=== PATIENT | female | born 1960 | race Caucasian/White ===

== ENCOUNTER → 2017-06-15 | Outpatient (CLI) | payer OTHER ==
[~2017-06-15] MED LIST: NO HOME MEDICATIONS; PHENERGAN 25 TA25 MG PO; XANAX0.5 MG PO
[2017-06-15 10:42] LABS: BASO # 0.1 (0.0-0.2); EOS # 0.1 (0.0-0.7); EOS % 2.5 % (0-4.0); GRAN # 2.7 (1.4-6.5); GRAN % 51.6 % (42.2-75.2); HEMATOCRIT 44.9 % (37.0-47.0); HEMOGLOBIN 14.8 g/dl (12.5-16.0); LYMPH # 1.9 (1.2-3.4); LYMPH % 35.9 % (20.0-51.0); MEAN CELL VOLUME 91 fl (80.0-100.0); MEAN CORPUSCULAR HEMOGLOBIN 30 pg (27.0-31.0); MEAN CORPUSCULAR HGB CONC 33 g/dl (33.0-37.0); MEAN PLATELET VOLUME 11.6 fl (7.4-10.4); MONO # 0.5 (0.1-0.6); PLATELET COUNT 224 K/mm3 (130-400); RED BLOOD COUNT 4.94 M/mm3 (4.10-5.30); WHITE BLOOD COUNT 5.2 K/mm3 (4.8-10.8)
[2017-06-15 10:43] LABS: MUCOUS Present /lpf; PH 5 (5-8); URINE APPEARANCE Hazy; URINE BACTERIA None Seen /hpf; URINE BILIRUBIN Negative (NEGATIVE); URINE BLOOD Negative (NEGATIVE); URINE COLOR Yellow; URINE GLUCOSE Negative (NEGATIVE); URINE KETONE Trace (NEGATIVE); URINE LEUKOCYTE ESTERASE Negative (NEGATIVE); URINE PROTEIN(semi-quant) Negative (NEGATIVE); URINE RBC 0-2 /hpf; URINE UROBILINOGEN Negative (NEGATIVE); URINE WBC 0-2 /hpf
[2017-06-15 10:52] LABS: ADJUSTED CALCIUM 9.1 mg/dL (8.4-10.2); ALBUMIN 4.8 gm/dL (3.5-5.0); BILIRUBIN,TOTAL 0.6 mg/dL (0.0-1.0); CALCIUM 9.7 mg/dL (8.4-10.2); CHOLESTEROL RISK RATIO 3.3; CREATININE, serum 0.65 mg/dL (0.52-1.25); POTASSIUM 3.7 mmol/L (3.4-5.0); TOTAL PROTEIN 7.9 gm/dL (6.4-8.2)
[2017-06-15 11:03] LABS: COLLECTION METHOD CLEAN CATCH
[2017-06-15 11:22] LABS: THYROID STIMULATING HORMONE 2.35 uIU/mL (0.465-4.680)
== END ==
LOC: COL.VAS 09:13
PROVIDERS: Registered Nurse
DX: I36.1 Nonrheumatic tricuspid (valve) insufficiency (principal); E66.01 Morbid (severe) obesity due to excess calories; M17.0 Bilateral primary osteoarthritis of knee

== ENCOUNTER 2019-08-09 17:14 | Inpatient (IN) | payer OTHER ==
[~2019-08-09] VITALS: Ht 157.5 cm; Wt 119.3 kg
[2019-08-09 18:19] LABS: COLLECTION METHOD CLEAN CATCH
[2019-08-09 18:26] LABS: HEMOGLOBIN 12.1 g/dl (12.5-16.0); MEAN CELL VOLUME 88 fl (80.0-100.0); MEAN CORPUSCULAR HEMOGLOBIN 29 pg (27.0-31.0); MEAN CORPUSCULAR HGB CONC 33 g/dl (33.0-37.0); MEAN PLATELET VOLUME 10.9 fl (7.4-10.4); PLATELET COUNT 338 K/mm3 (130-400); RED BLOOD COUNT 4.15 M/mm3 (4.10-5.30); REDCELL DISTRIBUTION WIDTH-CV 12.9 % (11.5-14.5)
[2019-08-09 18:28] LABS: HEMATOCRIT 36.4 % (37.0-47.0)
[2019-08-09 18:36] LABS: ALBUMIN 3.8 gm/dL (3.5-5.0); BILIRUBIN,TOTAL 0.5 mg/dL (0.0-1.0); CALCIUM 9.6 mg/dL (8.4-10.2); CREATININE, serum 0.58 (0.52-1.25); TOTAL PROTEIN 7.3 gm/dL (6.4-8.2)
[2019-08-09 18:46] LABS: MUCOUS Present /lpf; PH 7 (5-8); SQUAMOUS EPITHELIAL 0-2 /hpf; URINE APPEARANCE Clear; URINE BACTERIA None Seen /hpf; URINE BILIRUBIN Negative (NEGATIVE); URINE BLOOD Negative (NEGATIVE); URINE COLOR Yellow; URINE GLUCOSE Negative (NEGATIVE); URINE KETONE Negative (NEGATIVE); URINE LEUKOCYTE ESTERASE Trace (NEGATIVE); URINE NITRATE Negative (NEGATIVE); URINE PROTEIN(semi-quant) Negative (NEGATIVE); URINE RBC 0-2 /hpf; URINE UROBILINOGEN Negative (NEGATIVE)
[2019-08-09 18:48] LABS: POTASSIUM 2.9 mmol/L (3.4-5.0)
[2019-08-09 20:21] LABS: BAND 3 % (0-10); LYMPHOCYTE 10 % (20.0-51.0); NEUTROPHILS 83 % (42.0-75.2); PLATELET ESTIMATE NORMAL (NORMAL)
[2019-08-09] MEDS ORDERED: FLAGYL500 MG PO (21:26)
[2019-08-09] MEDS ORDERED: CIPRO 500MG TA500 MG PO (21:27)
[2019-08-09] MEDS ORDERED: CBD OIL (21:28)
[2019-08-09] MEDS ORDERED: BENADRYL25 M2 PO (21:28)
--- NOTE | 2019-08-09 22:30 | NUR ---
Patient arrived to Surgical floor at this time
--- NOTE | 2019-08-09 22:45 | NUR ---
Assessment complete. Lungs clear. Murmur heard. Bowels active x4. Pulses present throughout. No edema noted. INT right hand and left AC present. Flushed without complications. Has right thumb nail missing and right pointer finger wound healing. Denies pain at time of admission. Alert and orientated. Orientated to surgical floor, call light, and room. Denies questions at this time.
--- NOTE | 2019-08-09 22:55 | NUR ---
Verbal orders given from Ana María Garcia APRN for NS at 125ml/hr and stop D5 1/2 NS. Accuchecks Q6H. Potassium 40 meq total, 10 meq bags IV and telemetry.
[2019-08-10] VITALS (282 sets, daily range): BP systolic 68–158; BP diastolic 42–114; PULSE 80–171; TEMP 98.9–101.5; O2SAT 72–100
--- NOTE | 2019-08-10 01:08 | NUR ---
Patient reports unrelieved pain after adminstration of dilaudid. Dilaudid order states may repeat dose in 30 mins if unrelieved pain. Provided to patient at this time. Will monitor
[2019-08-10] MEDS ORDERED: [UNRECOGNIZED DRUG - OTHER] PO (02:28)
[2019-08-10] MEDS ORDERED: ALEVE 220MG220 MG PO (02:29)
--- NOTE | 2019-08-10 03:52 | NUR ---
Rating pain 5/10. Provided with PRN dilaudid at this time.
--- NOTE | 2019-08-10 06:06 | NUR ---
Rating ABD pain 10. Requested and provided PRN dilaudid at this time. call light in reach.
--- NOTE | 2019-08-10 06:36 | NUR ---
Patient required PRN dilaudid for pain control throughout night. Otherwise uneventful night. Resting in bed this AM.
--- NOTE | 2019-08-10 07:09 | NUR ---
Report given to DEBORAH Gonzalez
[2019-08-10 08:03] LABS: HEMOGLOBIN 10.5 g/dl (12.5-16.0); MEAN CELL VOLUME 91 fl (80.0-100.0); MEAN CORPUSCULAR HEMOGLOBIN 29 pg (27.0-31.0); MEAN CORPUSCULAR HGB CONC 32 g/dl (33.0-37.0); MEAN PLATELET VOLUME 11.3 fl (7.4-10.4); PLATELET COUNT 348 K/mm3 (130-400); RED BLOOD COUNT 3.64 M/mm3 (4.10-5.30); REDCELL DISTRIBUTION WIDTH-CV 13.3 % (11.5-14.5)
[2019-08-10 08:14] LABS: ALBUMIN 3.2 gm/dL (3.5-5.0); BILIRUBIN,TOTAL 0.4 mg/dL (0.0-1.0); CALCIUM 8.1 mg/dL (8.4-10.2); CREATININE, serum 0.55 (0.52-1.25); POTASSIUM 3.4 mmol/L (3.4-5.0); TOTAL PROTEIN 6.3 gm/dL (6.4-8.2)
[2019-08-10 09:24] LABS: BAND 20 % (0-10); HYPOCHROMIA 1+; LYMPHOCYTE 9 % (20.0-51.0); NEUTROPHILS 59 % (42.0-75.2); PLATELET ESTIMATE NORMAL (NORMAL)
--- NOTE | 2019-08-10 09:52 | NUR ---
Parimutuel Ticket Cashier met with patient to discuss discharge planning. Patient lives in [place] with her ex Yan. Patient states her son, Edil (ph#[phone]) lives in [place]. Patient is a self employed portillo. Patient obtains any needed medications from [facility]. Patient reports her medications are expensive but that she doesn't need medications very often. Patient used to see Janay Wadsworth at [facility] but has not seen her in about three years. Patient states she would be open to seeing Janay Wadsworth again if follow up is needed. Patient does not use any DME and is independent with [employer]LS. Patient reports she has Advance Directives completed and that they are located in a safe deposit box at her bank. Patient plans to return home upon discharge with her family providing transportation. SW to continue to follow to monitor for any discharge needs.
--- NOTE | 2019-08-10 11:28 | NUR ---
Initial visit; Patient thanked Band Saw Operator for offering comfort and God's blessings and reminding her that she will be offered Holy Communion while she is here with us.
--- NOTE | 2019-08-10 13:10 | NUR ---
Student nurse in with patient, pateint complaining of chills and shortness of breath. Notified hospitalist. Patient having increased oxygen needs, HR to 160's and increased BP. STAT orders entered. Will continue to monitor.
[2019-08-10 13:22] LABS: ARTERIAL BLD GAS O2 SATURATION 94.9 % (92-100); ARTERIAL BLD GAS TCO2 CT 16.2; ARTERIAL BLOOD GAS BASE EXCESS -7.7 (-2-2); ARTERIAL BLOOD GAS HCO3 15.4 meq/L (22-26); ARTERIAL BLOOD GAS PCO2 25.8 mmHg (35-45); ARTERIAL BLOOD GAS PO2 72.9 mmHg (80-100); ARTERIAL BLOOD GAS pH 7.39 (7.35-7.45)
--- NOTE | 2019-08-10 14:10 | NUR ---
Patient to CT, then to ICU. Report to Dilma CABRERA.
--- NOTE | 2019-08-10 14:30 | NUR ---
PATIENT ARRIVES TO ICU FROM CT. PATIENT ON 15 L/MIN O2. LABORED RESPIRATIONS. ASSESSMENT COMPLETED. MOVING LITTLE AIR. BREATH SOUNDS DIMINISHED. DR. PRESTON GIVES ORDER TO INTUBATE
--- NOTE | 2019-08-10 14:56 | NUR ---
Vancomycin Initial Dosing Pharmacy Note Ordering provider: Elias Gonzalez MD Indication/duration: GI LABS: Crea = 0.55, est Crcl > 90 ml/min Recommendation: 1.75 g iv Q12h, follow daily labs, trough on 08/12/19 @1430 Loading dose: 1.75 grams Maintenance dose: 1.75 grams every 12 hours Trough goal: 15-20 ug/mL
--- NOTE | 2019-08-10 15:10 | NUR ---
PATIENT INTUBATED AND SEDATED. PATIENT LEAVES FOR US ADMINISTRATIVE LAW JUDGE AFTER CONSENT RECEIVED FROM SON ANGUS.
[2019-08-10 15:19] LABS: HEMATOCRIT 42.8 % (37.0-47.0); HEMOGLOBIN 13.7 g/dl (12.5-16.0); MEAN CELL VOLUME 90 fl (80.0-100.0); MEAN CORPUSCULAR HEMOGLOBIN 29 pg (27.0-31.0); MEAN CORPUSCULAR HGB CONC 32 g/dl (33.0-37.0); MEAN PLATELET VOLUME 10.9 fl (7.4-10.4); PLATELET COUNT 416 K/mm3 (130-400); RED BLOOD COUNT 4.74 M/mm3 (4.10-5.30); REDCELL DISTRIBUTION WIDTH-CV 13.4 % (11.5-14.5)
[2019-08-10 15:29] LABS: INR 1.4 (0.8-3.0); PROTHROMBIN TIME 16.5 SECONDS (9.7-12.8)
[2019-08-10 15:30] LABS: ALBUMIN 3.7 gm/dL (3.5-5.0); BILIRUBIN,TOTAL 0.6 mg/dL (0.0-1.0); CREATININE, serum 0.57 (0.52-1.25); MAGNESIUM 1.9 mg/dL (1.6-2.3); POTASSIUM 3.7 mmol/L (3.4-5.0); TOTAL PROTEIN 7.3 gm/dL (6.4-8.2)
[2019-08-10 16:00] LABS: BAND 27 % (0-10); LYMPHOCYTE 5 % (20.0-51.0); NEUTROPHILS 67 % (42.0-75.2)
[2019-08-10 16:01] LABS: HYPOCHROMIA 1+; PLATELET ESTIMATE INCREASED (NORMAL)
[2019-08-10 16:17] LABS: TROPONIN-I 1.18 ng/mL (0.000-0.035)
--- NOTE | 2019-08-10 16:30 | NUR ---
PATIENT ARRIVES BACK FROM [facility]. HR 130-150s. BP low, levophed to be started per dr. carrasco order.
[2019-08-10 17:41] LABS: ARTERIAL BLD GAS TCO2 CT 16.8; ARTERIAL BLOOD GAS HCO3 15.8 meq/L (22-26); ARTERIAL BLOOD GAS PCO2 31.5 mmHg (35-45); ARTERIAL BLOOD GAS PO2 73.3 mmHg (80-100); ARTERIAL BLOOD GAS pH 7.32 (7.35-7.45)
--- NOTE | 2019-08-10 18:00 | NUR ---
family meeting had with dr. carrasco and family. patient will remain a full code at this time.
--- NOTE | 2019-08-10 19:30 | NUR ---
Report given to DEBORAH Heard at this time. Family at the bedside.
--- NOTE | 2019-08-10 19:40 | NUR ---
Patient intubated and sedated at this time, tolerating ventilator well. Assessment completed and charted at this time, please see documentation for details. Patient family at bedside, all questions and concerns addressed. Will continue to monitor.
--- NOTE | 2019-08-10 23:50 | NUR ---
Assessment completed and charted, please see documentation for details. Patient tolerating ventilator well at this time. No family at bedside, have called and checked on patient status. Will continue to monitor and assess.
[2019-08-11] VITALS (511 sets, daily range): BP systolic 90–163; BP diastolic 55–115; PULSE 90–123; TEMP 97.8–99; O2SAT 69–100
--- NOTE | 2019-08-11 00:41 | NUR ---
RN DID ORAL CARE HE WAS IN THE ROOM AT THE TIME AND WAS AVALIABLE TO DO IT.
[2019-08-11 02:23] LABS: INR 1.9 (0.8-3.0)
[2019-08-11 02:34] LABS: HEMATOCRIT 45.4 % (37.0-47.0); HEMOGLOBIN 13.3 g/dl (12.5-16.0); MEAN CELL VOLUME 100 fl (80.0-100.0); MEAN CORPUSCULAR HEMOGLOBIN 29 pg (27.0-31.0); MEAN CORPUSCULAR HGB CONC 29 g/dl (33.0-37.0); MEAN PLATELET VOLUME 11.1 fl (7.4-10.4); PLATELET COUNT 391 K/mm3 (130-400); RED BLOOD COUNT 4.56 M/mm3 (4.10-5.30); REDCELL DISTRIBUTION WIDTH-CV 13.9 % (11.5-14.5)
[2019-08-11 02:35] LABS: ALBUMIN 3.5 gm/dL (3.5-5.0); BILIRUBIN,TOTAL 0.7 mg/dL (0.0-1.0); CALCIUM 8.2 mg/dL (8.4-10.2); CREATININE, serum 1.55 (0.52-1.25); MAGNESIUM 2.3 mg/dL (1.6-2.3); PHOSPHOROUS 9.6 mg/dL (2.5-4.5); POTASSIUM 4.5 mmol/L (3.4-5.0); TOTAL PROTEIN 6.9 gm/dL (6.4-8.2)
[2019-08-11 02:37] LABS: TROPONIN-I 4.3 ng/mL (0.000-0.035)
[2019-08-11 03:02] LABS: BAND 82 % (0-10); LYMPHOCYTE 6 % (20.0-51.0); NEUTROPHILS 9 % (42.0-75.2)
--- NOTE | 2019-08-11 04:00 | NUR ---
Patient given 10 unit bolus of insulin per Dr. Alonzo and started at rate of 2. Will run insulin protocol from now.
[2019-08-11 05:39] LABS: ARTERIAL BLD GAS O2 SATURATION 97.3 % (92-100); ARTERIAL BLD GAS TCO2 CT 12.7; ARTERIAL BLOOD GAS BASE EXCESS -16.6 (-2-2); ARTERIAL BLOOD GAS HCO3 11.6 meq/L (22-26); ARTERIAL BLOOD GAS PCO2 35.8 mmHg (35-45); ARTERIAL BLOOD GAS pH 7.13 (7.35-7.45)
[2019-08-11 06:07] LABS: POTASSIUM 3.9 mmol/L (3.4-5.0)
--- NOTE | 2019-08-11 06:20 | NUR ---
Discussed IV compatibility with [facility], Pharmacy, okayed the use of dobutamine and amiodarone to be Y-site administered.
[2019-08-11 06:36] LABS: TROPONIN-I 4.24 ng/mL (0.000-0.035)
--- NOTE | 2019-08-11 07:25 | NUR ---
Report received from Félix CABRERA and care resumed.
--- NOTE | 2019-08-11 08:15 | NUR ---
AIVS at bedside for PICC line placement.
[2019-08-11 09:09] LABS: PARTIAL THROMBOPLASTIN TIME 28.8 SECONDS (26.0-37.0)
--- NOTE | 2019-08-11 09:15 | NUR ---
Dr Lynne in to see pt at this time.
--- NOTE | 2019-08-11 10:43 | NUR ---
Dr Gonzalez in to see pt at this time.
--- NOTE | 2019-08-11 11:28 | NUR ---
The patient may be tranferred to [facility]. WALL STEAMER student faxed patient information to Marlene champion# . WALL STEAMER student contacted the patient's son, Emanuel to inquire about [facility]. He reports he will try and find it and bring in a copy. central services tech will continue to follow.
--- NOTE | 2019-08-11 11:40 | NUR ---
RN NOTIFIED RT OF ORAL CARE DONE FOR 11.
--- NOTE | 2019-08-11 12:10 | NUR ---
pt intubated and on the vent, RT in control room. pt on multiple drips via bilat picc lines. Pt pulled onto ct table with slide board. Monitor continues from ICU.
--- NOTE | 2019-08-11 12:27 | NUR ---
Dr Peter placed drainage catheter into abscess in left lower abdomen. Specimen obtained and placed in specimen cup and labeled.
--- NOTE | 2019-08-11 12:30 | NUR ---
See radiology nurses notes for blood transfusion vital signs.
--- NOTE | 2019-08-11 13:10 | NUR ---
PT JUST RETURNED BACK TO ICU FROM CT FOR A GUIDED DRAIN. PT TOLERATED WELL WITH NO INCIDENTS. PT TRANSPORTED ON VENT WITH NO CHANGES OTHER THAN INCREASING FIO2 TO 100% DECREASED BY 10% AT THIS TIME. WILL CONTINUE TO WEAN TOLERATED.
--- NOTE | 2019-08-11 13:15 | NUR ---
Pt to CT at 1150 with nurse, RT, radiology staff. Pt had CT guided drain placed to abdomen. Purelent drainage noted with foul smell. Specimen was collected and sent to lab. Pt returned to room at 1310. Tolerated well.
[2019-08-11 13:29] LABS: POTASSIUM 3.1 mmol/L (3.4-5.0)
[2019-08-11 13:47] LABS: TROPONIN-I 6.41 ng/mL (0.000-0.035)
--- NOTE | 2019-08-11 13:54 | NUR ---
Dr Gonzalez here and notified of potassium level and increased troponin. Order for potassium protocol received. No further orders as pt has been accepted to [facility] and working on transfer at this time.
--- NOTE | 2019-08-11 14:10 | NUR ---
The patient's son, Emanuel brought [facility]- paperwork. A copy was placed in the chart. The patient is to transfer to [facility] via [facility], this day for further care. There are no additional needs at this time.
--- NOTE | 2019-08-11 15:50 | NUR ---
RN TOLD RT JUST DID ORAL CARE.
--- NOTE | 2019-08-11 16:00 | NUR ---
Flight team at bedside at this time.
[2019-08-11 16:23] LABS: ARTERIAL BLD GAS O2 SATURATION 95.5 % (92-100); ARTERIAL BLD GAS TCO2 CT 16.1; ARTERIAL BLOOD GAS BASE EXCESS -8.1 (-2-2); ARTERIAL BLOOD GAS HCO3 15.3 meq/L (22-26); ARTERIAL BLOOD GAS PCO2 26.1 mmHg (35-45); ARTERIAL BLOOD GAS PO2 77.7 mmHg (80-100); ARTERIAL BLOOD GAS pH 7.39 (7.35-7.45)
--- NOTE | 2019-08-11 16:45 | NUR ---
Restraints removed per flight team at this time.
--- NOTE | 2019-08-11 17:25 | NUR ---
Report called to Sunshine CABRERA at [facility]. Call back info left and ETA of flight team.
--- NOTE | 2019-08-12 18:39 | NUR ---
Call recieved from lab. Patient anerobic blood culture results were gram + rods. Call placed to Surgical ICU at [facility] and results given to DEBORAH Ochoa. Results faxed to [facility]
== END 2019-08-11 17:00 | disposition short-term general hospital (02) | DRG 871 ==
LOC: COL.ER 17:14 → SURG 20:33 → ICU 20:33 → COL.ER 20:33 → SURG 23:59 → ICU 08-10 14:13
PROVIDERS: Anesthesiology Critical Care Medicine; Emergency Medicine; Internal Medicine Pulmonary Disease; Nurse Practitioner Family; ADMIT Internal Medicine
PROC: 0BH17EZ Insertion of Endotracheal Airway into Trachea, Via Natural or Artificial Opening (ICD-10-PCS; principal; 2019-08-09)
PROC: 5A1945Z Respiratory Ventilation, 24-96 Consecutive Hours (ICD-10-PCS; 2019-08-09)
PROC: 02HV33Z Insertion of Infusion Device into Superior Vena Cava, Percutaneous Approach (ICD-10-PCS; 2019-08-10)
PROC: B2111ZZ Fluoroscopy of Multiple Coronary Arteries using Low Osmolar Contrast (ICD-10-PCS; 2019-08-10)
PROC: 0H97X0Z Drainage of Abdomen Skin with Drainage Device, External Approach (ICD-10-PCS; 2019-08-11)
PROC: 02HV33Z Insertion of Infusion Device into Superior Vena Cava, Percutaneous Approach (ICD-10-PCS; 2019-08-11)
DX: A41.9 Sepsis, unspecified organism (principal); R65.21 Severe sepsis with septic shock; R57.0 Cardiogenic shock; J96.01 Acute respiratory failure with hypoxia; K57.20 Diverticulitis of large intestine with perforation and abscess without bleeding; Z68.42 Body mass index [BMI] 45.0-49.9, adult; E87.2 Acidosis; N17.9 Acute kidney failure, unspecified; J81.1 Chronic pulmonary edema; I42.8 Other cardiomyopathies; E66.01 Morbid (severe) obesity due to excess calories; M19.90 Unspecified osteoarthritis, unspecified site; D64.9 Anemia, unspecified; E87.6 Hypokalemia; R73.9 Hyperglycemia, unspecified; Z98.51 Tubal ligation status
CPT/HCPCS: 99222-AI; A4216; A4314; C1729; C1751; C1769; J0282; J0330; J1170; J1250; J1450; J1644; J1720; J1815; J1885; J1940; J2185; J2405; J2543; J2550; J2704; J3010; J3370; J3480; J7030; J7040; J7060; Q9967